=== PATIENT | male | born 1995 | race Caucasian/White ===

== ENCOUNTER 2017-06-10 13:06 | Emergency (ER) | payer OTHER ==
[~2017-06-10] VITALS: Ht 175.3 cm; Wt 88.0 kg
[2017-06-10 13:13] VITALS: TEMP 37; Ht 175.3 cm; Wt 88.0 kg
[2017-06-10] MEDS ORDERED: ONDANSETRON INJ 2 MG/ML 2 ML VIAL IV STA (13:39)
[2017-06-10] MEDS ORDERED: SODIUM CHLORIDE 0.9% 1000ML 1,000 ML IV ONE ×3 (13:45→16:00)
--- NOTE | 2017-06-10 14:07 | EMERGENCY ROOM VISIT NOTE ---
History First contact with patient: 13:35 Chief Complaint: VOMITING Stated Complaint: VOMITTING, DIARRHEA, STOMACH ACHE, DEHYDRATION Nursing Triage Summary: n/v/d since last night told to come to the ED by [facility] for abnormal blood work History of Present Illness The patient is an otherwise healthy 21-year-old male who presents to the emergency room with 1 day of sudden onset nausea vomiting and diarrhea. Patient states that the diarrhea started suddenly yesterday afternoon. States that the consisted of the diarrhea has been watery. He is also had intractable vomiting. He states that he has 4 episodes. There is no blood or coffee- ground appearance to the vomit. He states that he was unable to keep anything down orally yesterday. Today he seems to be able to keep small amounts of Gatorade. He denies any abdominal pain. He does state that he feels slightly feverish to touch, but has not measured it measured any temperatures at home. He denies any respiratory symptoms including shortness of breath, coughing or wheezing. He denies any urinary symptoms including dysuria or urinary frequency. He does state that he has not urinated since yesterday. And that his urine yesterday looked like it was dark yellow. The patient denies any recent travel. He does state the he was in [place] last week for spring. He was in contact with friends who recently been to [place]. One of his friends has become sick but that started today. States that he does drink alcohol, and that because of spring he probably drank more than usual. On average last week he was drinking 6-8 units of beer a night, this happened approximately 3-4 times total. The patient does not smoke. He does state that he smoked marijuana twice last week during spring. Review of Systems A 10 point review of systems was negative unless stated above. Past Medical/Surgical History No other past medical history Social History Smoking Status: Former Smoker Smokeless Tobacco Use: No Alcohol Use: heavy (recently during spring) Drug Use: marijuana (Twice a week as week; not smoke marijuana on a regular basis) Marital Status: single Housing Status: lives with friends Occupation Status: student Current/Historical Medications Scheduled PRN Ondansetron Hcl (Zofran), 4 MG PO Q4H PRN for Nausea Allergies NKA Physical Exam Vital Signs Date Time Temp Pulse Resp B/P (MAP) Pulse Ox O2 Delivery O2 Flow Rate FiO2 06/10/17 18:30 81 10 98 Room Air 06/10/17 18:01 106/48 06/10/17 18:00 93 19 98 Room Air 06/10/17 17:31 107/41 06/10/17 17:30 81 17 99 Room Air 06/10/17 17:01 115/56 06/10/17 17:00 81 16 99 Room Air 06/10/17 16:31 105/49 06/10/17 16:30 87 20 100 Room Air 06/10/17 16:01 80 28 114/53 99 Room Air 06/10/17 15:28 85 18 114/57 99 Room Air 06/10/17 14:59 95 06/10/17 14:32 80 16 115/63 99 Room Air 06/10/17 13:13 37.0 112 16 126/78 98 Room Air Pain Rating (0-10): 0 Physical Exam Constitutional: Vital signs as above were reviewed. Eyes: Pupils equal, round, and reactive to light. Extraocular muscles are intact. No proptosis. No photophobia. ENT: Oropharynx is clear. No sinus tenderness. TMs are clear bilaterally. Mucous membranes appear moist Cardiovascular: Tachycardic, rate of 115 on arrival. Normal rhythm. He appears pale Respiratory: Lungs clear to auscultation bilaterally. No wheezes, rales, or rhonchi appreciated. No accessory muscle use. No retractions. No increased work of breathing. GI: Abdomen soft, nontender, nondistended. Normal active bowel sounds. No abdominal hernias appreciated. No rebound. No guarding. : No CVA tenderness appreciated. Musculoskeletal: No midline cervical or vertebral tenderness. No gross deformities. No bony tenderness. No calf swelling or tenderness. Integumentary: Warm, dry, no rashes appreciated. Neurological: Patient awake, alert, and oriented x 3. Mentating normally. Lymph: No cervical lymphadenopathy appreciated. Medical Decision & Procedures ER Provider Diagnostic Interpretation: [~ rep ct add3]] CHEST ONE VIEW PORTABLE HISTORY: 21 years-old Male SIRS criterial; likely dehydration but r/o PNA acute SIRS with concern for possible pulmonary source. Acute dehydration. COMPARISON: None available TECHNIQUE: Portable AP view of the chest FINDINGS: Cardiomediastinal and hilar silhouettes are within normal limits. There is no pneumothorax, pleural effusion, focal airspace consolidation or overt pulmonary edema. Bones of the chest appear grossly intact. IMPRESSION: No acute process. The above report was generated using voice recognition software. It may contain grammatical, syntax or spelling errors. Electronically signed by: Jose Angel Self M.D. 06/10/2017 6:26 PM Dictated Date/Time: 06/10/2017 6:25 PM The status of this report is Signed. Draft = Not yet reviewed or approved by Radiologist. Signed = Reviewed and approved by Radiologist. <AttendingPhy></AttendingPhy> <FamilyPhy>[facility]</FamilyPhy> <PrimaryPhy>[facility]</PrimaryPhy> <UnitNumber>[id number]</ UnitNumber> <VisitNumber>[id number] Laboratory Results 06/10/17 19:04 Red Blood Count 4.98, Mean Corpuscular Volume 85.5, Mean Corpuscular Hemoglobin 28.7, Mean Corpuscular Hemoglobin Concent 33.6, Mean Platelet Volume 10.8, Neutrophils (%) (Auto) 85.3, Lymphocytes (%) (Auto) 6.6, Monocytes (%) (Auto) 7.2, Eosinophils (%) (Auto) 0.4, Basophils (%) (Auto) 0.1, Neutrophils # (Auto) 11.55, Lymphocytes # (Auto) 0.89, Monocytes # (Auto) 0.97, Eosinophils # (Auto) 0.05, Basophils # (Auto) 0.02 06/10/17 19:04 Test 06/10/17 13:50 06/10/17 13:53 06/10/17 14:00 06/10/17 14:50 Total Bilirubin 1.0 mg/dl (0.2-1) Aspartate Amino Transf (AST/SGOT) 14 U/L (15-37) Alanine Aminotransferase (ALT/SGPT) 33 U/L (12-78) Alkaline Phosphatase 63 U/L (45-117) Total Creatine Kinase 183 U/L (39-308) Creatine Kinase MB < 0.5 ng/ml (0.5-3.6) Total Protein 7.4 gm/dl (6.4-8.2) Albumin 4.1 gm/dl (3.4-5.0) Globulin 3.3 gm/dl (2.5-4.0) Albumin/Globulin Ratio 1.3 (0.9-2) Lipase 74 U/L (73-393) Creatine Kinase MB Ratio (0-3.0) Influenza Type A Antigen Neg for Influ A (NEG) Influenza Type B Antigen Neg for Influ B (NEG) Lactic Acid Level 0.9 mmol/L (0.4-2.0) Test 06/10/17 16:50 06/10/17 19:04 Urine Color DK YELLOW Urine Appearance CLOUDY (CLEAR) Urine pH 5.0 (4.5-7.5) Urine Specific [place] 1.026 (1.000-1.030) Urine Protein NEG (NEG) Urine Glucose (UA) NEG (NEG) Urine Ketones 2+ (NEG) Urine Occult Blood 2+ (NEG) Urine Nitrite NEG (NEG) Urine Bilirubin NEG (NEG) Urine Urobilinogen NEG (NEG) Urine Leukocyte Esterase NEG (NEG) Urine WBC (Auto) 1-5 /hpf (0-5) Urine RBC (Auto) 5-10 /hpf (0-4) Urine Hyaline Casts (Auto) >30 /lpf (0-5) Urine Epithelial Cells (Auto) >30 /lpf (0-5) Urine Bacteria (Auto) NEG (NEG) Urine Pathogenic Casts 1-5 GRANULAR CASTS /lpf (0) White Blood Count 13.53 K/uL (4.8-10.8) Red Blood Count 4.98 M/uL (4.7-6.1) Hemoglobin 14.3 g/dL (14.0-18.0) Hematocrit 42.6 % (42-52) Mean Corpuscular Volume 85.5 fL (80-100) Mean Corpuscular Hemoglobin 28.7 pg (25-34) Mean Corpuscular Hemoglobin Concent 33.6 g/dl (32-36) Platelet Count 253 K/uL (130-400) Mean Platelet Volume 10.8 fL (7.4-10.4) Neutrophils (%) (Auto) 85.3 % Lymphocytes (%) (Auto) 6.6 % Monocytes (%) (Auto) 7.2 % Eosinophils (%) (Auto) 0.4 % Basophils (%) (Auto) 0.1 % Neutrophils # (Auto) 11.55 K/uL (1.4-6.5) Lymphocytes # (Auto) 0.89 K/uL (1.2-3.4) Monocytes # (Auto) 0.97 K/uL (0.11-0.59) Eosinophils # (Auto) 0.05 K/uL (0-0.5) Basophils # (Auto) 0.02 K/uL (0-0.2) RDW Standard Deviation 40.7 fL (36.4-46.3) RDW Coefficient of Variation 13.1 % (11.5-14.5) Immature Granulocyte % (Auto) 0.4 % Immature Granulocyte # (Auto) 0.05 K/uL (0.00-0.02) Anion Gap 8.0 mmol/L (3-11) Est Creatinine Clear Calc Drug Dose 101.0 ml/min Estimated GFR () 93.0 Estimated GFR (Non- 80.2 BUN/Creatinine Ratio 19.2 (10-20) Calcium Level 8.1 mg/dl (8.5-10.1) Medications Administered Medications (Trade) Dose Ordered Sig/Buddy Route Start Time Stop Time Status Last Admin Dose Admin Sodium Chloride 1,000 ml @ 999 mls/hr Q1H1M ONCE IV 06/10/17 13:45 06/10/17 14:45 DC 06/10/17 13:53 999 MLS/HR Ondansetron HCl (Zofran Inj) 4 mg NOW STAT IV 06/10/17 13:39 06/10/17 13:43 DC 06/10/17 13:53 4 MG Sodium Chloride 1,000 ml @ 999 mls/hr Q1H1M ONCE IV 06/10/17 14:00 06/10/17 15:00 DC 06/10/17 14:31 999 MLS/HR Sodium Chloride 1,000 ml @ 999 mls/hr Q1H1M ONCE IV 06/10/17 16:00 06/10/17 17:00 DC 06/10/17 16:01 999 MLS/HR ECG Per My Interpretation Indication: vomiting Rhythm: normal sinus Findings: no acute ischemic change, no ectopy Comparison ECG Date: no prior available ED Course 13:40 -seen and assessed Labs: CBC, CMP, CPK, Lipase UA 2 L NSS 13:50 - Labs from S reviewed WBC 23 K 5.7 Cr 2.1 14: 30 - EKG was reviewed: Normal sinus rhythm with no acute ST or T-wave changes 15: 00-labs reviewed; creatinine and potassium levels noted to be improved; CPK level is normal Reviewed the case with Dr. Cummings Based on tachycardia and elevated WBC on arrival, will draw blood cultures and check a lactate level. 16: 00 - The patient was reassessed. He states that he feels better. Third liter is currently running. 18:30 - Chest x-ray ordered to rule out pneumonia in the setting of positive SIRS criteria; chest x-ray was normal 19:00 - Will repeat labs at this time. 20:00 - labs reviewed: WBC improved to 13 creatinine improved to 1.2; potassium improved to 4.1 I reassess the patient: He states that he has been tolerating p.o. I discussed the patient's care with his father over the phone I discussed with the patient that he would be good to be discharged 20:40 - Discharge completed. Medical Decision 20-year-old male otherwise unremarkable medical history, presenting with acute gastrointestinal symptoms including nausea vomiting and diarrhea. Clinically he did appear dehydrated. The patient did have lab work done at [facility] prior to arrival. He had a significant leukocytosis of 23, an elevated creatinine of 2.1. In addition he had an elevated potassium of 5.9. An EKG did not show any acute changes consistent with hyperkalemia. On arrival he was tachycardic which seemed to settle down once he was put in the bed. He did meet criteria for SIRS but my impression was that this was more likely due to dehydration as opposed to overwhelming systemic infection. In keeping with protocol we did collect blood cultures (which are pending at discharge) and checked a lactate (which was normal). I did not feel the etiology of this was bacterial and as such elected not to administer broad- spectrum antibiotics until I had an opportunity to evaluate his response to fluid resuscitation. Medially upon arrival, we decided to repeat laboratory work and provide aggressive fluid resuscitation. The patient's labs had improved on arrival to a white count of 17, creatinine of 1.8 and a potassium of 4.8. Furthermore we treated supportively with antiemetic medications and the patient did note significant symptomatic relief. Other etiologies were ruled out such as pancreatitis. He did have a history of recent physical exertion and in the context of hyperkalemia, rhabdo was an initial concern. Fortunately, the CPK was negative. A CXR was normal. As such, I felt this fit the picture of an acute gastroenteritis. Urinalysis did demonstrate casts in the urine marking a diagnosis of acute kidney injury. Fortunately his urine did demonstrate adequate concentrating capabilities with an elevated specific gravity 1.026 suggesting intact concentrating function. We did opt to provide a total of 3 L of IV rehydration. After this we did give the patient opportunity to declare himself as able to tolerate oral intake. He was able to swallow clear liquids without any difficulty. Given that he is otherwise relatively healthy individual, we did feel that he could be discharged if repeat lab work in the ED would show continued improvement. Repeat BMP and CBC showed an improved white count of 13, potassium level 4.1 as well as a further improve creatinine at 1.2. In tandem with his EGFR was reflecting the improvement in his creatinine. His discharge EGFR was 80, which is still low but serially improving. It is unclear what his baseline creatinine and EGFR are. While he made an excellent recovery over his emergency room stay, I did feel it was important to ensure follow-up lab work given that GFR, while improving, still remain less than 90. I did discuss the diagnosis with the patient, and advised that repeat lab work in 2-3 days was very important. I also encouraged him to follow-up closely with his primary care provider [facility] or for direct follow-up with myself at the [facility]. In order to provide supportive care to the patient, I did provide him with a prescription of Zofran which seemed to have given him relief in the emergency room. I did have the opportunity to speak to Gregorio's father over the phone and discussed the diagnosis and treatment course with. Head Trauma GCS Score: 15 Medication Reconcilliation Current Medication List: was personally reviewed by me Blood Pressure Screening Patient's blood pressure: Normal blood pressure Impression Primary Impression: Acute kidney injury Additional Impressions: Dehydration Gastroenteritis Ruled Out: Rhabdomyolysis, Pancreatitis Departure Information Dispostion Home / Self-Care Condition GOOD Prescriptions Ondansetron Hcl (ZOFRAN) 4 Mg Tab 4 MG PO Q4H Y for Nausea for 3 Days, #12 TAB Prov: Yfn March MD 06/10/17 Referrals No Doctor, Assigned (PCP) Patient Instructions My [facility] Additional Instructions He came to the emergency room because of nausea vomiting diarrhea for the past day. Based on her history and exam, we feel this is most likely due to a viral gastroenteritis. You were seen first at [facility]. They did laboratory work on you which was concerning for dehydration to the extent that it was causing strain on your kidneys. Upon arrival we checked additional lab work. While this looked improved from your lab work at [facility], it was still concerning for dehydration. We gave you 3 L of IV fluid. We also gave you Zofran, a medication for nausea and vomiting. Because you looked quite sick when you first arrived, we collected blood cultures which are still pending. After administration of fluid and antinausea medication, you did note that you were feeling much better. You also looked much better. Given the initial abnormalities in you lab work, we decided to repeat lab work once before making the decision to discharge. This repeat set of lab work looked much better. Your kidney function looked to be normalized. As such we feel that you can be safely discharged home and back to the care of your primary care provider. When you go home please focus on fluid intake. You may not have much of an appetite, and if you wish to eat, you can try low bulk foods such as bananas rice applesauce or toast (BRAT diet). We will also give you Zofran in case you get nauseous. If you are nauseous and are unable to take food or water by mouth despite having Zofran, he should come back to the emergency room to be evaluated again. To be safe, we would like you to repeat lab work in 2-3 days. We will give you a prescription to come to the hospital and have the lab work done. Please bring the prescription to the hospital to have the labs done. Your were looked after in the emergency room by Dr. Yfn March MD. If you wish to have follow-up with him, he works for [employer], [address] . Alternatively you can be seen again at [facility] who assessed you initially. If your symptoms fail to improve, acutely worsen, please seek medical attention immediately by either calling your primary care provider or going to your nearest emergency department. Otherwise, please see your primary care provider within 1 week to ensure that your symptoms continue to improve. It was a pleasure to be involved in your care and we wish you all the best. Problem Qualifiers
[2017-06-10 14:10] LABS: BASO % 0.1 %; BASO ABS # 0.02 K/uL (0-0.2); EOS % 0.1 %; EOS ABS # 0.01 K/uL (0-0.5); HEMATOCRIT 45.3 % (42-52); HEMOGLOBIN 15.9 g/dL (14.0-18.0); LYMPH ABS # 0.53 K/uL (1.2-3.4); MEAN CELL VOLUME 84.5 fL (80-100); MEAN CORPUSCULAR HEMOGLOBIN 29.7 pg (25-34); MEAN CORPUSCULAR HGB CONC 35.1 g/dl (32-36); MEAN PLATELET VOLUME 10.3 fL (7.4-10.4); MONO % 5.8 %; MONO ABS # 1.02 K/uL (0.11-0.59); NEUT % 90.4 %; NEUT ABS # 15.88 K/uL (1.4-6.5); PLATELET COUNT 283 K/uL (130-400); RED CELL DISTRIBUTION WIDTH SD 39.5 fL (36.4-46.3); WHITE BLOOD COUNT 17.56 K/uL (4.8-10.8)
[2017-06-10 14:32] LABS: ALBUMIN 4.1 gm/dl (3.4-5.0); CALCIUM 8.9 mg/dl (8.5-10.1); CREATININE 1.87 mg/dl (0.60-1.40); POTASSIUM 4.8 mmol/L (3.5-5.1)
[2017-06-10 14:35] LABS: TOTAL PROTEIN 7.4 gm/dl (6.4-8.2)
[2017-06-10 14:56] LABS: INFLUENZA B ANTIGEN Neg for Influ B (NEG)
[2017-06-10 15:32] LABS: CKMB < 0.5 ng/ml (0.5-3.6)
--- NOTE | 2017-06-10 17:53 | EMERGENCY ROOM VISIT NOTE ---
ED Visit Note First contact with patient: 13:35 HPI: 21-year-old gentleman presents emergency department with fevers chills nausea and vomiting over the past day. Referred to the ED by [facility] after having ZORAN and leukocytosis on outpatient labs. PE: AF, HR 110s otherwise VSS, NAD NC/AT, dry cracked MM. ST, no murmurs CTAB Abd soft NT/ND Ext: no edema, erythema Neuro: grossly intact EKG: NSR 82, normal axis, incomplete RBBB, QRS 94, no acute ischemia. Plan: WBC 17 and creatinine 1.8 concerning for infectious process. CXR negative. US negative for infection and otherwise c/w ATN. Given the patient's GI symptoms most likely a severe gastroenteritis leading to profound dehydration. Patient feeling improved with IV fluid hydration. Thus given this otherwise healthy 21-year-old will repeat CBC and BMP after IV fluids and if demonstrates trending improvement it was reasonable to discharge the patient with close outpatient follow-up at [facility]. I reviewed the patient's past medical history, medications, and visit nursing notes. I discussed the case with the resident physician, examined the patient, and agree with the findings and plan as documented in the residents note unless otherwise clarified here by me.
--- NOTE | 2017-06-10 18:27 | DIAGNOSTIC IMAGING REPORT ---
CHEST ONE VIEW PORTABLE HISTORY: 21 years-old Male SIRS criterial; likely dehydration but r/o PNA acute SIRS with concern for possible pulmonary source. Acute dehydration. COMPARISON: None available TECHNIQUE: Portable AP view of the chest FINDINGS: Cardiomediastinal and hilar silhouettes are within normal limits. There is no pneumothorax, pleural effusion, focal airspace consolidation or overt pulmonary edema. Bones of the chest appear grossly intact. IMPRESSION: No acute process. The above report was generated using voice recognition software. It may contain grammatical, syntax or spelling errors. Electronically signed by: Jose Angel Self M.D. 06/10/2017 6:26 PM Dictated Date/Time: 06/10/2017 6:25 PM
[2017-06-10] MEDS ORDERED: ONDA4TAB46 PO (19:38)
[2017-06-10 19:44] LABS: BASO % 0.1 %; BASO ABS # 0.02 K/uL (0-0.2); EOS % 0.4 %; EOS ABS # 0.05 K/uL (0-0.5); HEMATOCRIT 42.6 % (42-52); HEMOGLOBIN 14.3 g/dL (14.0-18.0); IG# 0.05 K/uL (0.00-0.02); LYMPH % 6.6 %; LYMPH ABS # 0.89 K/uL (1.2-3.4); MEAN CELL VOLUME 85.5 fL (80-100); MEAN CORPUSCULAR HEMOGLOBIN 28.7 pg (25-34); MEAN CORPUSCULAR HGB CONC 33.6 g/dl (32-36); MEAN PLATELET VOLUME 10.8 fL (7.4-10.4); MONO % 7.2 %; MONO ABS # 0.97 K/uL (0.11-0.59); NEUT % 85.3 %; NEUT ABS # 11.55 K/uL (1.4-6.5); PLATELET COUNT 253 K/uL (130-400); RED CELL DISTRIBUTION WIDTH CV 13.1 % (11.5-14.5); RED CELL DISTRIBUTION WIDTH SD 40.7 fL (36.4-46.3); WHITE BLOOD COUNT 13.53 K/uL (4.8-10.8)
[2017-06-10] MEDS ORDERED: ONDANSETRON HOME PACK 4MG OD TAB PO ONE (19:45)
[2017-06-10 20:05] LABS: CALCIUM 8.1 mg/dl (8.5-10.1); CREATININE 1.27 mg/dl (0.60-1.40); POTASSIUM 4.1 mmol/L (3.5-5.1)
[2017-06-10] MEDS ORDERED: SODIUM CHLORIDE 0.9% 500ML 500 ML IV ONE (20:15)
[2017-06-10 20:59] VITALS: BP 119/63; PULSE 80; O2SAT 100
== END 2017-06-10 20:56 | disposition home or self-care (01) ==
LOC: C.EDB 13:08
DX: N17.9 Acute kidney failure, unspecified (principal); E86.0 Dehydration; K52.9 Noninfective gastroenteritis and colitis, unspecified; Z87.891 Personal history of nicotine dependence; F12.90 Cannabis use, unspecified, uncomplicated